=== PATIENT | female | born 1970 | race Caucasian/White ===

== ENCOUNTER 2020-05-24 08:40 | Outpatient (REF) | payer OTHER, SELFPAY ==
[2020-05-24 09:41] LABS: Anion Gap 10 (12-20); Blood Urea Nitrogen 13 mg/dL (9-16); Carbon Dioxide 27 mmol/L (22-29); Chloride 106 mmol/L (96-108); Estimated Glomerular Filt Rate > 60; Potassium 3.8 mmol/l (3.3-5.1); Sodium 139 mmol/L (135-145)
== END 2020-05-24 08:41 | disposition home or self-care (01) ==
LOC: HO.LAB 08:40
PROVIDERS: PCP Pediatrics; Visit Provider Internal Medicine Hypertension Specialist
DX: N17.9 Acute kidney failure, unspecified (principal); E87.6 Hypokalemia
CPT/HCPCS: 36415; 80051; 82565; 84520

== ENCOUNTER → 2020-06-09 10:39 | Outpatient (BNVA) | payer OTHER, SELFPAY | PROVIDERS: PCP Pediatrics; Referring Provider Pediatrics; Visit Provider Internal Medicine Gastroenterology | DX: Z76.89 Persons encountering health services in other specified circumstances (principal) ==

== ENCOUNTER 2020-11-10 08:54 | Outpatient (REF) | payer OTHER, SELFPAY ==
[2020-11-10 09:17] LABS: MANUAL DIFF FLAG NO
[2020-11-10 09:21] LABS: Basophils Absolute Auto 0.1 X10*3/uL (0.0-0.2); Basophils Percent Auto 0.7 % (0-2); Eosinophils Absolute Auto 0.1 X10*3/uL (0.0-0.4); Eosinophils Percent Auto 1.1 % (0-4); Hematocrit 39.4 % (37-47); Hemoglobin 12.7 g/dl (12.0-16.0); Imm Gran Abs Auto 0.12 X10*3/uL (0.00-0.03); Lymphocytes Percent Auto 8.6 % (20-40); Mean Corpuscular HGB Conc 32.2 g/dl (31.0-35.0); Mean Corpuscular Hemoglobin 28.9 pg (27.0-33.0); Mean Corpuscular Volume 89.5 fL (80-98); Mean Platelet Volume 10.2 fL (9.4-12.3); Monocytes Absolute Auto 0.9 X10*3/uL (0.1-1.2); Neutrophils Absolute Auto 9.5 X10*3/uL (2.0-8.3); Neutrophils Percent Auto 80.6 % (45-73); Platelet Count 332 X10*3/uL (160-400); Red Cell Distribution Width 14.4 % (11.0-16.0); White Blood Count 11.8 X10*3/uL (4.8-10.8)
[2020-11-10 09:59] LABS: Alanine Aminotransferase 14 U/L (0-31); Albumin Level 3.5 g/dL (3.5-5.0); Alkaline Phosphatase 68 U/L (39-117); Anion Gap 12 (12-20); Aspartate Amino Transferase 17 U/L (5-31); Bilirubin Total < 0.2 mg/dL (0.0-1.0); Blood Urea Nitrogen 14 mg/dL (9-16); Calcium 8.8 mg/dL (8.4-10.2); Carbon Dioxide 27 mmol/L (22-29); Chloride 107 mmol/L (96-108); Estimated Glomerular Filt Rate > 60; Glucose Random 80 mg/dL (60-115); Potassium 3.9 mmol/L (3.3-5.1); Sodium 142 mmol/L (135-145); Total Protein 6.1 g/dL (6.5-8.0)
[2020-11-10 10:19] LABS: Vitamin D 25-OH Total 38.5 ng/mL (>30)
== END 2020-11-10 08:55 | disposition home or self-care (01) ==
LOC: HO.LAB 08:54
PROVIDERS: PCP Pediatrics; Visit Provider Internal Medicine Gastroenterology
DX: K50.00 Crohn's disease of small intestine without complications (principal)
CPT/HCPCS: 36415; 80053; 82306; 85025; 86140

== ENCOUNTER 2020-11-19 09:04 | Outpatient (REF) | payer OTHER, SELFPAY ==
[2020-11-19 12:06] LABS: Anion Gap 15 (12-20); Blood Urea Nitrogen 11 mg/dL (9-16); Calcium 8.6 mg/dL (8.4-10.2); Carbon Dioxide 23 mmol/L (22-29); Chloride 106 mmol/L (96-108); Estimated Glomerular Filt Rate > 60; Potassium 3.7 mmol/L (3.3-5.1); Sodium 140 mmol/L (135-145)
[2020-11-19 12:39] LABS: Creatinine Urine 117.61 mg/dL; Protein/Creatinine Ratio, Ur 0.07 (<0.2); Total Protein Urine Random 8 mg/dL (<12)
== END 2020-11-19 09:05 | disposition home or self-care (01) ==
LOC: HO.LAB 09:04
PROVIDERS: Absent Provider Internal Medicine Hypertension Specialist; PCP Advanced Practice Midwife; Referring Provider Advanced Practice Midwife; Visit Provider Internal Medicine Gastroenterology
DX: E87.6 Hypokalemia (principal); K50.00 Crohn's disease of small intestine without complications
CPT/HCPCS: 36415; 80051; 82310; 82565; 84156; 84520

== ENCOUNTER 2021-01-27 13:22 | Outpatient (REF) | payer OTHER, SELFPAY ==
--- NOTE | ~2021-01-27 | XR_ITS ---
EXAMINATION: XR CERVICAL SPINE CLINICAL INFORMATION: Injury. COMPARISON: None TECHNIQUE: 3 views of the cervical spine were obtained. FINDINGS: There is mild straightening of cervical lordosis. The vertebral heights, alignment and disc heights are normal. No visible acute fracture, dislocation or subluxation seen. The prevertebral soft tissues are normal. XR/XR cervical spine 3V IMPRESSION: Mild straightening of cervical lordosis. No visible acute fracture, dislocation or subluxation seen.
== END 2021-01-27 13:23 | disposition home or self-care (01) ==
LOC: HO.HMGCX 13:22
PROVIDERS: PCP Pediatrics; Visit Provider Nurse Practitioner Family
DX: M54.2 Cervicalgia (principal)
CPT/HCPCS: 72040

== ENCOUNTER 2021-03-13 16:40 | Outpatient (REF) | payer OTHER, SELFPAY ==
[2021-03-13 16:59] LABS: MANUAL DIFF FLAG NO
[2021-03-13 17:00] LABS: Basophils Absolute Auto 0.1 X10*3/uL (0.0-0.2); Eosinophils Absolute Auto 0.2 X10*3/uL (0.0-0.4); Eosinophils Percent Auto 2.1 % (0-4); Hematocrit 40.1 % (37-47); Hemoglobin 12.9 g/dl (12.0-16.0); Lymphocytes Absolute Auto 1.1 X10*3/uL (1.2-4.9); Lymphocytes Percent Auto 11.3 % (20-40); Mean Corpuscular HGB Conc 32.2 g/dl (31.0-35.0); Mean Corpuscular Hemoglobin 28.9 pg (27.0-33.0); Mean Corpuscular Volume 89.7 fL (80-98); Mean Platelet Volume 10.2 fL (9.4-12.3); Monocytes Absolute Auto 0.8 X10*3/uL (0.1-1.2); Monocytes Percent Auto 8.5 % (2-11); Neutrophils Absolute Auto 7.5 X10*3/uL (2.0-8.3); Neutrophils Percent Auto 76.1 % (45-73); Platelet Count 313 X10*3/uL (160-400); Red Blood Count 4.47 X10*6/uL (4.20-5.50); Red Cell Distribution Width 13.9 % (11.0-16.0); White Blood Count 9.8 X10*3/uL (4.8-10.8)
[2021-03-13 17:24] LABS: Alanine Aminotransferase 23 U/L (0-31); Albumin Level 3.7 g/dL (3.5-5.0); Alkaline Phosphatase 83 U/L (39-117); Anion Gap 13 (12-20); Aspartate Amino Transferase 21 U/L (5-31); Bilirubin Total 0.3 mg/dL (0.0-1.0); Blood Urea Nitrogen 13 mg/dL (9-16); Calcium 8.8 mg/dL (8.4-10.2); Carbon Dioxide 24 mmol/L (22-29); Chloride 107 mmol/L (96-108); Estimated Glomerular Filt Rate 56; Glucose Random 110 mg/dL (60-115); Sodium 140 mmol/L (135-145); Total Protein 6.3 g/dL (6.5-8.0)
[2021-03-13 18:02] LABS: Vitamin B12 > 2000 pg/mL (200-900)
== END 2021-03-13 16:41 | disposition home or self-care (01) ==
LOC: HO.LAB 16:40
PROVIDERS: Internal Medicine Gastroenterology; PCP Pediatrics; Visit Provider Surgery Vascular Surgery
DX: K50.00 Crohn's disease of small intestine without complications (principal)
CPT/HCPCS: 36415; 80053; 82607; 85025; 86140

== ENCOUNTER → 2021-03-17 08:05 | Outpatient (BNVA) | payer OTHER, SELFPAY | PROVIDERS: PCP Pediatrics; Referring Provider Pediatrics; Visit Provider Nurse Practitioner Family ==

== ENCOUNTER 2021-04-17 09:01 | Outpatient (REF) | payer OTHER, SELFPAY ==
--- NOTE | ~2021-04-17 | MR_ITS ---
EXAMINATION: MRI OF THE ABDOMEN AND PELVIS WITH AND WITHOUT CONTRAST CLINICAL INFORMATION: Crohn's disease of the small intestine. COMPARISON: Previous CT scans, most recent February 2020. TECHNIQUE: Sagittal axial and coronal sequences through the abdomen and pelvis following 3 bottles 17 oz of oral BREEZA contrast and with and without IV contrast. The patient received 6.5 mL intravenous Gadavist contrast. FINDINGS: The lung bases are clear. Liver is normal in size, shape and signal. No focal liver lesion is seen. The gallbladder is been removed. There is no biliary duct dilatation. There is a small cyst seen in the posterior body of the pancreas. This measures 5 x 8 mm, for example axial T2 image 14 series 7 and axial image 40 series 21 postcontrast. This is not appreciated on prior CT exams. This demonstrates no evidence of enhancement, solid component or thickened septation. The main pancreatic duct is normal. The spleen is normal. The adrenal glands are normal. There are small bilateral renal cysts. The kidneys are otherwise normal. The stomach is normal. There are postsurgical changes to the small bowel in the right lower quadrant. There is a loop of small bowel the right lower quadrant that appears dilated. When compared with previous CT scan, this is similar and is probably at the surgical anastomosis. The small bowel is otherwise normal. No evidence of wall thickening or enhancement is seen to suggest active inflammatory bowel disease. No stricture or fistula is appreciated. The large bowel is unremarkable. The appendix is not seen. The rectum is normal appearing. There is diastasis of the rectus muscles and small umbilical hernia containing fat. No ascites or adenopathy is seen. The uterus and ovaries are unremarkable. The bladder is unremarkable. Review at bone windows is unremarkable. MR/MR abdomen wo/w con IMPRESSION: No evidence of active inflammatory bowel disease. There are postsurgical changes to the small bowel. There is a loop of slightly dilated small bowel in the right side of the abdomen, similar to previous CT scan, probably at the surgical anastomosis. Small 5 x 8 mm cyst in the posterior body of the pancreas.
== END 2021-04-17 09:02 | disposition home or self-care (01) ==
LOC: HO.MRI 09:01
PROVIDERS: Visit Provider Nurse Practitioner Family
DX: K50.00 Crohn's disease of small intestine without complications (principal)
CPT/HCPCS: 72197; 74183; A9585

== ENCOUNTER → 2021-05-15 09:25 | Outpatient (BNVA) | payer OTHER, SELFPAY | PROVIDERS: PCP Pediatrics; Referring Provider Pediatrics; Visit Provider Nurse Practitioner Family ==